=== PATIENT | female | born 1955 | race Caucasian/White ===

== ENCOUNTER 2022-01-22 08:00 | Inpatient (IN) | payer OTHER ==
[~2022-01-22] VITALS: Ht 154.9 cm; Wt 77.1 kg
[2022-01-22] MEDS ORDERED: JARDIANCE25 MG PO (10:57)
[2022-01-22] MEDS ORDERED: GABAPENTIN100 M2 PO (10:57)
[2022-01-22] MEDS ORDERED: COZAAR100 MG PO (10:57)
[2022-01-22] MEDS ORDERED: LIPITOR20 MG PO (10:57)
[2022-01-22] MEDS ORDERED: HUMALOG100 UNIT/2 (10:58)
[2022-01-22] MEDS ORDERED: LANTUS SOL100 UNIT/1 (10:58)
[2022-01-22] MEDS ORDERED: NABUMETONE500 MG PO (10:58)
[2022-01-22] MEDS ORDERED: CHILDREN'S ASPI81 MG PO (10:59)
[2022-02-13] MEDS ORDERED: ELIQUIS2.5 MG PO (07:59)
[2022-02-13] MEDS ORDERED: PERCOCET 5-3251 EACH PO (07:59)
[2022-02-13] MEDS ORDERED: CEFADROXIL500 MG PO (07:59)
== END 2022-02-13 11:00 | DRG 470 ==
LOC: SURH 01-27 08:00 → O/R 02-10 06:51 → SURG 02-10 06:51 → SURH 02-10 08:00 → SURG 02-10 13:54 → SURH 02-10 23:30 → SURG 02-13 11:00
PROVIDERS: ADMIT Orthopaedic Surgery; ATTEND Orthopaedic Surgery
PROC: 0SRC0J9 Replacement of Right Knee Joint with Synthetic Substitute, Cemented, Open Approach (ICD-10-PCS; principal; 2022-02-10 23:30)
DX: M17.11 Unilateral primary osteoarthritis, right knee (principal); D62 Acute posthemorrhagic anemia; M22.11 Recurrent subluxation of patella, right knee; M81.0 Age-related osteoporosis without current pathological fracture; E11.9 Type 2 diabetes mellitus without complications; Z20.822 Contact with and (suspected) exposure to COVID-19

== ENCOUNTER 2022-02-03 07:30 | Outpatient (CLI) | payer OTHER ==
[~2022-02-03 07:30] MED LIST: CHILDREN'S ASPI81 MG PO; COZAAR100 MG PO; GABAPENTIN100 M2 PO; HUMALOG100 UNIT/2; JARDIANCE25 MG PO; LANTUS SOL100 UNIT/1; LIPITOR20 MG PO; NABUMETONE500 MG PO
== END 2022-02-03 07:31 | disposition home or self-care (01) ==
LOC: LAB 07:30
PROVIDERS: ATTEND Internal Medicine
DX: Z20.828 Contact with and (suspected) exposure to other viral communicable diseases (principal)